=== PATIENT | female | born 1960 | race Hispanic/Latino ===

== ENCOUNTER 2020-06-26 16:30 | Emergency (ER) | payer OTHER ==
[~2020-06-26] VITALS: Ht 154.9 cm; Wt 83.5 kg
[2020-06-26] MEDS ORDERED: DEXAMETHASONE SOD PHOS 10 MG/1 ML VIAL IM ONE (17:00)
[2020-06-26] MEDS ORDERED: ACETAMINOPHEN 325 MG TAB PO ONE (17:00)
[2020-06-26] MEDS ORDERED: ONDANSETRON HCL 4 MG ORAL DISINTEGRATING TAB PO ONE (17:00)
[2020-06-26] MEDS ORDERED: DIAZEPAM 5 MG TAB PO ONE (17:00)
[2020-06-26] MEDS ORDERED: ZANAFLEX4 MG PO (17:00)
[2020-06-26] MEDS ORDERED: TYLENOL # 31 EA PO (17:00)
[2020-06-26] MEDS ORDERED: PREDNISONE50 MG PO (17:00)
--- NOTE | 2020-06-26 17:00 | Emergency Department Note ---
History of Present Illnes History of Present Illness Chief Complaint: Extremity Trauma/Pain History of Present Illness This is a 60 year old female c/o left lower back pain few days, getting worse. She walks through ED in NAD, steady gaits. . Arrival Mode: [employer] Required: No Onset (how long ago): day(s) Radiation: Reports back, Reports extremity Severity: moderate Onset quality: gradual Duration (how long): day(s) Timing of current episode: constant Progression: worsening Relieving factors: none Exacerbating factors: none Associated symptoms: Reports denies other symptoms Treatments prior to arrival: none Past Medical/Family History Physician Review I have reviewed the patient's past medical and family history. Any updates have been documented here. Past Medical History Recent Fever: No Clinical Suspicion of Infectio: No New/Unexplained Change in Ment: No Past Medical History: None Past Surgical History: Hysterectomy Social History Smoking Cessation: Never Smoker Counseling Performed: No Physically hurt or threatened: No Other Any Pre-Existing Lines (PICC,: No Is patient up to date on immun: No Review of Systems Review of Systems Constitutional: Reports no symptoms EENTM: Reports no symptoms Cardiovascular: Reports no symptoms Respiratory: Reports no symptoms Gastrointestinal: Reports abdominal pain Genitourinary: Reports no symptoms Musculoskeletal: Reports as per HPI, Reports back pain Integumentary: Reports no symptoms Neurological: Reports no symptoms Psychological: Reports no symptoms Endocrine: Reports no symptoms Hematological/Lymphatic: Reports no symptoms Physical Exam Related Data Allergies: Coded Allergies: No Known Allergies (Unverified , 06/22/20) Vital signs reviewed: Yes Physical Exam CONSTITUTIONAL Constitutional: Present well-developed, Present well-nourished HENT HENT: Present normocephalic, Present atraumatic, Present oropharynx clear/moist, Present nose normal HENT L/R: Present left ext ear normal, Present right ext ear normal EYES Eyes: Reports PERRL, Reports conjunctivae normal NECK Neck: Present ROM normal PULMONARY Pulmonary: Present effort normal, Present breath sounds normal CARDIOVASCULAR Cardiovascular: Present regular rhythm, Present heart sounds normal, Present capillary refill normal, Present normal rate GASTROINTESTINAL Abdominal: Present soft, Present nontender, Present bowel sounds normal GENITOURINARY Genitourinary: Present exam deferred SKIN Skin: Present warm, Present dry MUSCULOSKELETAL Musculoskeletal: Present ROM normal NEUROLOGICAL Neurological: Present alert, Present oriented x 3, Present no gross motor or sensory deficits, Present other (positive straight leg raise left) PSYCHOLOGICAL Psychological: Present mood/affect normal, Present judgement normal Results Laboratory Lab results reviewed: Yes Imaging Imaging results reviewed: Yes Assessment & Plan Medical Decision Making MDM sciatica pain Assessment & Plan Final Impression: (1) Acute back pain with sciatica Depart Disposition: HOME, SELF-FDC Meds Active Scripts Tizanidine Hcl (ZANAFLEX) 4 Mg Tablet, 1 TAB PO Q8H PRN for back pain, #30 Prov:DELON POWELL MD 06/26/20 Prednisone (PREDNISONE) 50 Mg Tablet, 50 MG PO DAILY, #5 TAB Prov:DELON POWELL MD 06/26/20 Acetaminophen/Codeine* (TYLENOL # 3*) 1 Ea Tab, 1 TAB PO Q4HR PRN for pain or cough, #30 Prov:DELON POWELL MD 06/26/20 Medications in the ED Ondansetron HCl 4 mg ONCE ONCE PO ; Start 06/26/20 at 17:00; Stop 06/26/20 at 17:01; Status UNV Diazepam 5 mg ONCE ONCE PO ; Start 06/26/20 at 17:00; Stop 06/26/20 at 17:01; Status UNV Dexamethasone Sodium Phosphate 10 mg ONCE ONCE IM ; Start 06/26/20 at 17:00; Stop 06/26/20 at 17:01; Status UNV Acetaminophen 650 mg ONCE ONCE PO ; Start 06/26/20 at 17:00; Stop 06/26/20 at 17:01; Status UNV DELON POWELL MD Jun 26, 2020 17:00
[2020-06-26] MEDS ORDERED: ONDANSETRON HCL 4 MG ORAL DISINTEGRATING TAB ONE (17:15)
[2020-06-26] MEDS ORDERED: DIAZEPAM INJ 5 MG/ML 2 ML ONE (17:16)
[2020-06-26] MEDS ORDERED: DEXAMETHASONE SOD PHOS 10 MG/1 ML VIAL ONE (17:16)
[2020-06-26] MEDS ORDERED: ACETAMINOPHEN 325 MG TAB ONE (17:16)
--- NOTE | 2020-06-26 17:43 | Diagnostic Imaging Report ---
L SPINE 2-3 VEWS - HOPD - 3 views HISTORY: Lower back pain COMPARISON: None available. FINDINGS: Alignment: There is grade 1 degenerative anterolisthesis of L5 on S1. Vertebral bodies: Normal height. Intervertebral disc spaces: There is multilevel loss of intervertebral disc space compatible with degenerative disc disease. Facets: There is multilevel facet arthrosis most pronounced in the lower lumbar spine. Soft tissues: The prevertebral soft tissues are unremarkable. Others: The partially imaged abdomen demonstrates normal bowel gas pattern. The sacroiliac joints are symmetric. IMPRESSION: 1. Lumbar spondylosis with multilevel degenerative disc disease. 2. Grade 1 degenerative anterolisthesis of L5 on S1. Signed by: Andrea Miranda MD on 06/26/2020 5:40 PM
[2020-06-26 17:55] VITALS: BP 111/75
== END 2020-06-26 18:03 | disposition home or self-care (01) ==
LOC: FSED 16:30
DX: M54.42 Lumbago with sciatica, left side (principal)
CPT/HCPCS: 72100; 81003; 99283; J1100; J3360; Q0162

== ENCOUNTER → 2020-07-06 | Day surgery (SDC) | payer OTHER ==
[~2020-07-06] MED LIST: FENTANYL CITRATE/PF 100MCG/2 ML INJ ONE; HYOSCYAMINE 0.125 MG TAB ONE; LIDOCAINE HCL 2% LOCAL INJ 5 ML SDV VIAL INJ ONE; METOCLOPRAMIDE HCL 10 MG/2ML VIAL ONE; MIDAZOLAM HCL 2 MG/2 ML VIAL ONE; PREDNISONE50 MG PO; PROPOFOL IV EMULSION 10 MG/ML 20 ML VIAL ONE; TYLENOL # 31 EA PO; ZANAFLEX4 MG PO
[2020-07-06 11:15] VITALS: BP 117/90
--- NOTE | 2020-07-06 11:53 | Operative Report ---
DATE OF PROCEDURE: 07/06/2020 SURGEON: Jhonatan Zamudio MD PROCEDURES: EGD with polypectomy and biopsies and colonoscopy with polypectomy. INDICATIONS FOR EGD: History of upper abdominal pain, nausea, vomiting, bloating. INDICATIONS FOR COLONOSCOPY: Colorectal cancer screening, history of rectal bleeding. MEDICATIONS: The patient was done under MAC, please see anesthesiologist's note. PROCEDURE IN DETAIL: With the patient in the left lateral decubitus position, a flexible fiberoptic Olympus gastroscope was introduced into the esophagus under direct visualization without any difficulty. There was some patchy erythema noted in distal esophagus. The scope was then advanced with ease into the stomach and mucosa overlying the antrum and the body revealed some patchy erythema and low-grade to moderate edema, and biopsies were obtained and sent to stain for H. pylori. A minute polyp was noted in the proximal antrum of greater curvature and that was excised with the cold biopsy forceps. There was also an umbilicated ulcerated lesion noted in distal body along the posterior wall and biopsies were obtained to rule out leiomyoma. A minute polyp was noted in the body of the stomach that was also excised with the cold biopsy forceps. Pylorus was of normal contour and shape, was intubated with ease and the scope was advanced all the way to the second portion of the duodenum. Biopsies were obtained from the proximal second portion and duodenal bulb to rule out sprue. The scope was then withdrawn back into the stomach and retroflexed, mucosa overlying the fundus and the cardia appeared to be within normal limits. The scope was then straightened out, it was subsequently withdrawn, and the patient tolerated the procedure well. IMPRESSION: 1. Distal esophagitis, mild. 2. Gastritis, biopsied, biopsies sent to stain for Helicobacter pylori. 3. Gastric polyps, body and antrum, partially excised with the cold biopsy forceps. 4. Rule out leiomyoma, distal body posterior wall. 5. Rule out sprue. PLAN: Follow up histology. Initiate Protonix 40 mg one p.o. q.a.m. before meals. The patient was then turned around and after adequate lubrication of the anal canal, the flexible fiberoptic Olympus colonoscope was inserted into the rectum with ease and advanced all the way to the cecum. A minute polyp was noted in the cecum that was removed per the cold biopsy forceps. The scope was then withdrawn slowly and two minute polyps were also cold biopsied from the ascending colon. The transverse appeared to be within normal limits. One polyp was hot snared and two polyps were hot biopsied from the descending colon. One polyp was hot biopsied from the sigmoid colon. The scope was then retroflexed into the distal rectum and moderate-sized internal hemorrhoids were noted, none of which was actively bleeding. The scope was then straightened out, it was subsequently withdrawn, and the patient tolerated the procedure well. IMPRESSION: 1. Cecal polyp, minute, cold biopsied. 2. Ascending colon polyps x2, cold biopsied. 3. Descending colon polyps x3, one hot snared and two hot biopsied. 4. Sigmoid colon polyp, hot biopsied. 5. Internal hemorrhoids, none actively bleeding. PLAN: Follow up histology. Initiate high-fiber, low-fat diet. Initiate high-fiber supplement. Hydrocortisone acetate suppositories 25 mg b.i.d. x10 days and p.r.n. The patient might benefit from a followup colonoscopy in 3 years. Jhonatan Zamudio MD [facility] – [place] /[id number]
== END | disposition home or self-care (01) ==
LOC: OR 06:45
PROVIDERS: ATTEND Internal Medicine Gastroenterology
DX: Z12.11 Encounter for screening for malignant neoplasm of colon (principal); D12.0 Benign neoplasm of cecum; D12.2 Benign neoplasm of ascending colon; D12.4 Benign neoplasm of descending colon; K31.7 Polyp of stomach and duodenum; K29.70 Gastritis, unspecified, without bleeding; K21.9 Gastro-esophageal reflux disease without esophagitis; K20.9 Esophagitis, unspecified; K64.8 Other hemorrhoids; K76.0 Fatty (change of) liver, not elsewhere classified; D72.820 Lymphocytosis (symptomatic); R03.0 Elevated blood-pressure reading, without diagnosis of hypertension; Z01.810 Encounter for preprocedural cardiovascular examination; Z01.812 Encounter for preprocedural laboratory examination; Z11.59 Encounter for screening for other viral diseases; Z68.30 Body mass index [BMI] 30.0-30.9, adult; Z80.0 Family history of malignant neoplasm of digestive organs
CPT/HCPCS: 43239; 45380; 45384; 45385; 93005; J2001; J2250; J2704; J2765; J3010; U0002 ×2; 45378

== ENCOUNTER → 2020-09-19 | Day surgery (SDC) | payer OTHER ==
[~2020-09-19] MED LIST changes: -HYOSCYAMINE 0.125 MG TAB ONE; -METOCLOPRAMIDE HCL 10 MG/2ML VIAL ONE; +OMEPRAZOLE40 MG PO; +PREDNISONE20 MG PO; +SKELAXIN800 MG PO
[2020-09-19 10:50] VITALS: BP 112/79
== END | disposition home or self-care (01) ==
LOC: OR 07:39
PROVIDERS: ATTEND Internal Medicine Gastroenterology
DX: K20.90 Esophagitis, unspecified without bleeding (principal); C16.2 Malignant neoplasm of body of stomach; K29.60 Other gastritis without bleeding; K21.9 Gastro-esophageal reflux disease without esophagitis; K44.9 Diaphragmatic hernia without obstruction or gangrene; K31.9 Disease of stomach and duodenum, unspecified; R00.1 Bradycardia, unspecified; F32.9 Major depressive disorder, single episode, unspecified; Z01.810 Encounter for preprocedural cardiovascular examination; Z01.812 Encounter for preprocedural laboratory examination; Z20.828 Contact with and (suspected) exposure to other viral communicable diseases; Z68.30 Body mass index [BMI] 30.0-30.9, adult; Z86.010 Personal history of colon polyps; Z80.0 Family history of malignant neoplasm of digestive organs
CPT/HCPCS: 43239; 93005; J2001; J2250; J2704; J3010; U0002

== ENCOUNTER → 2020-09-28 | Outpatient (CLI) | payer OTHER ==
[~2020-09-28] MED LIST changes: -FENTANYL CITRATE/PF 100MCG/2 ML INJ ONE; +IOPAMIDOL 370 MG/ML 200 ML INFUS..BTL INJ ONE; -LIDOCAINE HCL 2% LOCAL INJ 5 ML SDV VIAL INJ ONE; -MIDAZOLAM HCL 2 MG/2 ML VIAL ONE; -PREDNISONE20 MG PO; -PROPOFOL IV EMULSION 10 MG/ML 20 ML VIAL ONE; -SKELAXIN800 MG PO; +SODIUM CHLORIDE 0.9% 50ML 50 ML ONE
== END ==
LOC: CT 16:40
PROVIDERS: ATTEND Internal Medicine Gastroenterology
DX: C16.9 Malignant neoplasm of stomach, unspecified (principal)
CPT/HCPCS: 74160; Q9967

== ENCOUNTER 2020-11-02 15:35 | Emergency (ER) | payer OTHER ==
[~2020-11-02] VITALS: Ht 162.6 cm; Wt 80.4 kg
[~2020-11-02 15:35] MED LIST changes: -IOPAMIDOL 370 MG/ML 200 ML INFUS..BTL INJ ONE; -SODIUM CHLORIDE 0.9% 50ML 50 ML ONE
[2020-11-02] MEDS ORDERED: PREDNISONE 20 MG TAB PO ONE (17:45)
[2020-11-02] MEDS ORDERED: PREDNISONE 20 MG TAB ONE (17:53)
[2020-11-02] MEDS ORDERED: SKELAXIN800 MG PO (18:10)
[2020-11-02] MEDS ORDERED: PREDNISONE20 MG PO (18:10)
[2020-11-02 18:25] VITALS: BP 117/69
== END 2020-11-02 18:20 | disposition home or self-care (01) ==
LOC: FSED 17:15
DX: M54.41 Lumbago with sciatica, right side (principal)
CPT/HCPCS: 99282; J7512

== ENCOUNTER 2021-02-14 14:38 | Emergency (ER) | payer BC, OTHER ==
[~2021-02-14] VITALS: Ht 167.6 cm; Wt 77.3 kg
[~2021-02-14 14:38] MED LIST changes: +PREDNISONE20 MG PO; +SKELAXIN800 MG PO
[2021-02-14] MEDS ORDERED: [UNRECOGNIZED DRUG - OTHER] (14:49)
[2021-02-14] MEDS ORDERED: CYCLOBENZAPRINE5 MG PO (14:49)
[2021-02-14] MEDS ORDERED: HYDROCODONE/APAP 5MG-325MG TAB PO ONE (15:00)
[2021-02-14] MEDS ORDERED: HYDROCODONE/APAP 5MG-325MG TAB ONE (15:06)
[2021-02-14] MEDS ORDERED: NAPROSYN500 MG PO (15:45)
[2021-02-14 16:03] VITALS: BP 100/64
== END 2021-02-14 16:18 | disposition home or self-care (01) ==
LOC: FSED 14:53
DX: M54.32 Sciatica, left side (principal); C41.9 Malignant neoplasm of bone and articular cartilage, unspecified
CPT/HCPCS: 72110; 72170; 99283